=== PATIENT | male | born 1970 | race African-American/Black ===

== ENCOUNTER 2023-01-03 09:16 | Emergency (ER) | payer BC | END 2023-01-03 11:04 | disposition home or self-care (01) | LOC: ERS 09:16 | DX: B34.9 Viral infection, unspecified (principal); I10 Essential (primary) hypertension; E78.5 Hyperlipidemia, unspecified; Z20.822 Contact with and (suspected) exposure to COVID-19; Z79.899 Other long term (current) drug therapy | CPT/HCPCS: 87635; 99283 ==